=== PATIENT | female | born 2000 | race Caucasian/White ===

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

== ENCOUNTER 2023-12-20 16:31 | Emergency (ER) | payer BC ==
[~2023-12-20] VITALS: Ht 162.6 cm; Wt 81.8 kg
[~2023-12-20 16:31] MED LIST: TRI-SPRINTEC 281 TAB
[2023-12-20 16:35] VITALS: TEMP 98.1
[2023-12-20 18:19] LABS: COLLECTION METHOD CLEAN CATCH
[2023-12-20 18:23] LABS: URINE APPEARANCE CLEAR (CLEAR/HAZY); URINE BLOOD NEGATIVE (NEGATIVE); URINE COLOR YELLOW (YELLOW); URINE GLUCOSE NEGATIVE (NEGATIVE); URINE KETONE NEGATIVE (NEGATIVE); URINE NITRATE NEGATIVE (NEGATIVE); URINE PROTEIN(semi-quant) NEGATIVE (NEGATIVE); URINE UROBILINOGEN 0.2 E.U/dL (0.2-1.0)
[2023-12-20 19:09] VITALS: BP 101/76; PULSE 69
== END 2023-12-20 19:14 | disposition home or self-care (01) ==
LOC: COL.ER 16:31
PROVIDERS: Nurse Practitioner
DX: K59.00 Constipation, unspecified (principal)